=== PATIENT | male | born 1955 | race Caucasian/White ===

== ENCOUNTER 2019-06-14 08:48 | Emergency (ER) | payer MEDICARE ==
--- NOTE | 2019-06-14 09:05 | ED ---
HPI Chest Pain - HPI Summary HPI Summary: Patient is a 63 y/o M who presents to the ED for evaluation for what he describes as concern for a heart attack. Patient notes his symptoms initially began approximately one week ago when he had an episode of turning pale, associated with left-sided numbness of his arm and leg, as well as shortness of breath with exertion. He denies fever, cough, focal weakness, headache, visual changes, chest pain/pressure, vomiting, abdominal pain, diarrhea, dysuria, or lower extremity pain/swelling. [place] and has not been around any sick contacts. PMHx of history of CAD, CHF, VTE, asthma, or COPD is denied. He reports a remote history of low back injury/sciatica. He is a former smoker. He smokes marijuana on occasion. He drinks several beers daily. No history of alcohol withdrawal. - History of Current Complaint Chief Complaint: EDChestPainROMI Hx Obtained From: Patient Onset/Duration: Started Days Ago, Atraumatic, Still Present Timing: Intermittent Initial Severity: Moderate Current Severity: Moderate Pain Scale Used: 0-10 Numeric Chest Pain Radiates: No Aggravating Factor(s): Nothing Alleviating Factor(s): Nothing Associated Signs and Symptoms: Positive: Numbness - Left arm and left leg, Shortness of Breath. Negative: Chest Pain, Headaches, Weakness, Fever, Cough, Abdominal Pain, Vomiting, Edema - Lower extremities - Allergy/Home Medications Allergies/Adverse Reactions: Allergies Allergy/AdvReac Type Severity Reaction Status Date / Time No Known Allergies Allergy Verified 06/14/19 09:09 Home Medications: Home Medications Aspirin EC TAB* [Ecotrin EC TAB*] 325 mg PO DAILY PRN 06/14/19 [History Confirmed 06/14/19] PMH/Surg Hx/FS Hx/Imm Hx Previously Healthy: Yes Cardiovascular History: Denies: Hx Congestive Heart Failure, Hx Coronary Artery Disease Respiratory History: Denies: Hx Asthma, Hx Chronic Obstructive Pulmonary Disease (COPD) Neurological History: Reports: Other Neuro Impairments/Disorders - Sciatica/ lower back injury - Surgical History Surgical History: None Surgery Procedure, Year, and Place: None Infectious Disease History: No Infectious Disease History: Denies: Traveled Outside the [place] in Last 30 Days - Family History Known Family History: Negative: Cardiac Disease, Hypertension, Diabetes - Social History Occupation: Retired Alcohol Use: Daily Alcohol Amount: Several beers daily Hx Substance Use: Yes Substance Use Type: Reports: Marijuana Hx Tobacco Use: Yes Smoking Status (MU): Former Smoker Review of Systems Positive: Other - Positive pallor. Negative: Fever Negative: Other - Negative visual changes Negative: Chest Pain Positive: Shortness Of Breath. Negative: Cough Negative: Abdominal Pain, Vomiting, Diarrhea Negative: dysuria Negative: Myalgia - Lower extremities, Edema - Lower extremities Positive: Numbness - Left arm and left leg. Negative: Headache, Weakness All Other Systems Reviewed And Are Negative: Yes Physical Exam - Summary Physical Exam Summary: Constitutional: Well-developed, Well-nourished, Alert. (-) Distressed Skin: Warm, Dry HENT: Normocephalic; Atraumatic Eyes: Conjunctiva normal Neck: Musculoskeletal ROM normal neck. (-) JVD, (-) Stridor, (-) Tracheal deviation Cardio: Rhythm regular, rate normal, Heart sounds normal; Intact distal pulses; The pedal pulses are 2+ and symmetric. Radial pulses are 2+ and symmetric. (-) Murmur Pulmonary/Chest wall: Effort normal. (-) Respiratory distress, (-) Wheezes, (-) Rales Abd: Soft, (-) tenderness, (-) Distension, (-) Guarding, (-) Rebound Musculoskeletal: (-) Edema. Slight bilateral UE tremor. Lymph: (-) Cervical adenopathy Neuro: Alert, Oriented x3 Psych: Mood and affect Normal Triage Information Reviewed: Yes Vital Signs Reviewed: Yes Procedures - Sedation Patient Received Moderate/Deep Sedation with Procedure: No Diagnostics - Laboratory Result Diagrams: 06/14/19 09:52 06/14/19 09:52 Lab Statement: Any lab studies that have been ordered have been reviewed, and results considered in the medical decision making process. - Radiology Chest X-ray Radiology Interpretation Completed By: Radiologist Summary of Radiographic Findings: Chest X-ray IMPRESSION: HYPERINFLATION, CONSISTENT WITH COPD. NO ACTIVE CARDIOPULMONARY DISEASE. Reviewed by Dr. Mcginnis. - EKG 09:07 Cardiac Rate: NL - 82 BPM EKG Rhythm: Sinus Rhythm ST Segment: Normal Ectopy: None Summary of EKG Findings: EKG at 09:07 shows normal sinus rhythm with 82 BPM, no ischemic changes. Dr. Mcginnis has reviewed and interpreted this EKG. Chest Pain Course/Dx - Course Course Of Treatment: Patient is a 63 y/o M who presents to the ED for evaluation for what he describes as concern for a heart attack. Patient notes his symptoms initially began approximately one week ago when he had an episode of turning pale, associated with left-sided numbness of his arm and leg, as well as shortness of breath with exertion. He denies fever, cough, focal weakness, headache, visual changes, chest pain/pressure, vomiting, abdominal pain, diarrhea, dysuria, or lower extremity pain/swelling. He notes [place] [address] [place] and has not been around any sick contacts. PMHx of history of CAD, CHF , VTE, asthma, or COPD is denied. He reports a remote history of low back injury /sciatica. He is a former smoker. He smokes marijuana on occasion. He drinks several beers daily. No history of alcohol withdrawal. On exam, slight bilateral UE tremor. EKG at 09:07 shows normal sinus rhythm with 82 BPM, no ischemic changes. Chest X-ray IMPRESSION: HYPERINFLATION, CONSISTENT WITH COPD. NO ACTIVE CARDIOPULMONARY DISEASE. All other abnormal lab results are not pertinent to current cc. Patient will be discharged with a diagnosis of atypical chest pain and weakness. Follow up with PCP in 2-3 days. - Diagnoses Provider Diagnoses: Atypical chest pain, Weakness Discharge ED - Sign-Out/Discharge Documenting (check all that apply): Patient Departure - Discharge - Discharge Plan Condition: Stable Disposition: HOME Patient Education Materials: Chest Pain (ED) Referrals: [facility] [Outside] Additional Instructions: RETURN TO THE EMERGENCY DEPARTMENT FOR CHANGING OR WORSENING SYMPTOMS. Follow up with your primary care physician in 2-3 days. - Billing Disposition and Condition Condition: STABLE Disposition: Home - Attestation Statements Document Initiated by Shadia: Yes Documenting Scribe: Rossy Hayes Provider For Whom Shadia is Documenting (Include Credential): Donald Mcginnis DO Scribe Attestation: Rossy Vyas scribed for Donald Mcginnis DO on 06/14/19 at 1555. Scribe Documentation Reviewed: Yes Provider Attestation: The documentation as recorded by the Rossy jeong accurately reflects the service I personally performed and the decisions made by , Donald Mcginnis DO Status of Scribe Document: Viewed
[2019-06-14 09:59] LABS: ABS Eosinophils 0.1 10^3/ul (0-0.6); ABS Lymphocytes 1.1 10^3/ul (1.0-4.8); ABS Monocytes 0.5 10^3/ul (0-0.8); Eosinophil % 1.1 %; Hematocrit 44 % (42-52); Hemoglobin 15.4 g/dL (14.0-18.0); Lymphocyte % 20.3 %; Mean Corpuscular HGB Conc 35 g/dL (31-36); Mean Corpuscular Hemoglobin 33 pg (27-31); Mean Corpuscular Volume 93 fL (80-94); Nucleated Red Blood Cells % 0.1; Platelet Count 143 10^3/uL (150-450); Red Blood Count 4.73 10^6 /uL (4.18-5.48); Red Cell Distribution Width 13 % (10-15); White Blood Count 5.6 10^3/uL (3.5-10.8)
[2019-06-14 10:11] LABS: INR 1.16 (0.82-1.09)
[2019-06-14 10:25] LABS: ALT 40 U/L (7-52); AST 32 U/L (13-39); Albumin 3.7 g/dL (3.2-5.2); Albumin/Globulin Ratio 1.4 (1-3); Alkaline Phosphatase 42 U/L (34-104); Anion Gap 5 mmol/L (2-11); BUN/Creatinine Ratio 12.5 (8-20); Blood Urea Nitrogen 12 mg/dL (6-24); CO2 Carbon Dioxide 26 mmol/L (22-32); Calcium 9.2 mg/dL (8.6-10.3); Chloride 105 mmol/L (101-111); EGFR African American 95.1 (>60); EGFR Non-African American 78.6 (>60); Globulin 2.6 g/dL (2-4); Glucose 107 mg/dL (70-100); Magnesium 1.9 mg/dL (1.9-2.7); Potassium 4.6 mmol/L (3.5-5.0); Sodium 136 mmol/L (135-145); Total Protein 6.3 g/dL (6.4-8.9)
[2019-06-14 10:41] LABS: Alcohol < 10 mg/dL (<10)
[2019-06-14 10:55] LABS: TSH (Thyroid Stimulating Horm) 1.27 mcIU/mL (0.34-5.60)
[2019-06-14 12:39] VITALS: BP 124/86
== END 2019-06-14 12:39 | disposition home or self-care (01) ==
LOC: ED 08:48
DX: R53.1 Weakness (principal); R07.89 Other chest pain; I25.10 Atherosclerotic heart disease of native coronary artery without angina pectoris; I50.9 Heart failure, unspecified; J44.9 Chronic obstructive pulmonary disease, unspecified; Z79.82 Long term (current) use of aspirin; Z87.891 Personal history of nicotine dependence
CPT/HCPCS: 36415; 71046; 80053; 80320; 83735; 84443; 84484; 85025; 85379; 85610; 93005; 99283; G0480

== ENCOUNTER 2020-05-21 11:35 | Inpatient (IN) ==
[2020-05-21 13:01] LABS: ABS Eosinophils 0.1 10^3/ul (0-0.6); ABS Lymphocytes 1.6 10^3/ul (1.0-4.8); ABS Monocytes 0.6 10^3/ul (0-0.8); ABS Neutrophils 4.1 10^3/ul (1.5-7.7); Eosinophil % 1.2 %; Hematocrit 42 % (42-52); Hemoglobin 14.4 g/dL (14.0-18.0); Lymphocyte % 25.4 %; Mean Corpuscular HGB Conc 34 g/dL (31-36); Mean Corpuscular Hemoglobin 32 pg (27-31); Mean Corpuscular Volume 95 fL (80-94); Platelet Count 158 10^3/uL (150-450); Red Blood Count 4.48 10^6 /uL (4.18-5.48); Red Cell Distribution Width 13 % (10-15); White Blood Count 6.5 10^3/uL (3.5-10.8)
[2020-05-21 13:07] LABS: INR 1.14 (0.82-1.09)
[2020-05-21 13:18] LABS: ALT 256 U/L (7-52); AST 160 U/L (13-39); Albumin/Globulin Ratio 1.4 (1-3); Alkaline Phosphatase 61 U/L (34-104); Anion Gap 6 mmol/L (2-11); BUN/Creatinine Ratio 12.8 (8-20); Blood Urea Nitrogen 11 mg/dL (6-24); CO2 Carbon Dioxide 28 mmol/L (22-32); Calcium 9.2 mg/dL (8.6-10.3); Chloride 103 mmol/L (101-111); EGFR African American 107.7 (>60); Globulin 2.9 g/dL (2-4); Glucose 93 mg/dL (70-100); Potassium 4.1 mmol/L (3.5-5.0); Sodium 137 mmol/L (135-145); Total Protein 6.9 g/dL (6.4-8.9)
[2020-05-21 13:45] LABS: Alcohol, S < 10 mg/dL (<10); TSH Ultra Thyroid Stim Horm 0.92 mcIU/mL (0.34-5.60)
[2020-05-21] MEDS ORDERED: Dexamethasone IV 4 MG/ML VIAL 1 ml VIAL IM ONE (13:55)
[2020-05-21 14:33] LABS: Urine Appearance Clear; Urine Bilirubin Negative (Negative); Urine Blood Negative (Negative); Urine Color Yellow; Urine Glucose Negative (Negative); Urine Ketones Negative (Negative); Urine Nitrite Negative (Negative); Urine Protein Negative (Negative); Urine Specific Gravity 1.005 (1.010-1.030); Urine Urobilinogen Negative (Negative)
[2020-05-21] MEDS ORDERED: Gadoteridol (CONTRAST) 279.3 MG/ML 10 ML IV ONE (15:37)
[2020-05-21 15:59] LABS: % Iron Saturation 48 % (15-55); Cholesterol 149 mg/dL; HDL Cholesterol 49.8 mg/dL; Iron 141 ug/dL (50-212); LDL Cholesterol 85 mg/dL; Total Iron Binding Capacity 293 mcg/dL (250-450); Transferrin 209 mg/dL (203-362); Triglycerides 70 mg/dL; Unsaturated Iron Binding < 278 ug/dL
[2020-05-21 16:04] LABS: Ferritin 489.5 ng/mL (24-336)
[2020-05-21] MEDS ORDERED: Dexamethasone IV 4 MG/ML VIAL 1 ml VIAL IV SLOW PU SCH (18:00)
[2020-05-21] MEDS: Dexamethasone IV 4 MG/ML VIAL 1 ml VIAL IV SLOW PU SCH (18:07)
[2020-05-21 21:45] LABS: Hepatitis B Surface Antigen Nonreactive (Nonreactive)
[2020-05-21 21:50] LABS: Hepatitis A Ab IgM Negative (Negative)
[2020-05-21 21:51] LABS: Hepatitis B Core IgM Nonreactive (Nonreactive)
[2020-05-21] MEDS ORDERED: Heparin 5000 UNITS/ML 1 mL VIAL SUBCUT SCH (22:00)
[2020-05-21 22:20] LABS: Hepatitis C Antibody Reactive (Negative)
[2020-05-22] MEDS: Dexamethasone IV 4 MG/ML VIAL 1 ml VIAL IV SLOW PU SCH ×4 (00:04→17:44)
[2020-05-22 05:47] LABS: ABS Lymphocytes 1.1 10^3/ul (1.0-4.8); ABS Monocytes 0.4 10^3/ul (0-0.8); ABS Neutrophils 10.2 10^3/ul (1.5-7.7); Hematocrit 44 % (42-52); Hemoglobin 15.3 g/dL (14.0-18.0); Lymphocyte % 9.1 %; Mean Corpuscular HGB Conc 35 g/dL (31-36); Mean Corpuscular Hemoglobin 33 pg (27-31); Mean Corpuscular Volume 93 fL (80-94); Mean Platelet Volume 8.3 fL (7.4-10.4); Platelet Count 168 10^3/uL (150-450); Red Blood Count 4.66 10^6 /uL (4.18-5.48); Red Cell Distribution Width 13 % (10-15); White Blood Count 11.6 10^3/uL (3.5-10.8)
[2020-05-22 06:13] LABS: ALT 217 U/L (7-52); AST 108 U/L (13-39); Albumin 3.8 g/dL (3.2-5.2); Albumin/Globulin Ratio 1.3 (1-3); Alkaline Phosphatase 55 U/L (34-104); Anion Gap 7 mmol/L (2-11); BUN/Creatinine Ratio 19.8 (8-20); Blood Urea Nitrogen 16 mg/dL (6-24); CO2 Carbon Dioxide 25 mmol/L (22-32); Calcium 9.1 mg/dL (8.6-10.3); Chloride 104 mmol/L (101-111); EGFR African American 115.4 (>60); EGFR Non-African American 95.3 (>60); Globulin 2.9 g/dL (2-4); Glucose 142 mg/dL (70-100); Potassium 4.4 mmol/L (3.5-5.0); Sodium 136 mmol/L (135-145); Total Protein 6.7 g/dL (6.4-8.9)
[2020-05-22] MEDS ORDERED: Iohexol 300 (CONTRAST) 10 ML SDV IV ONE (09:58)
[2020-05-22 10:05] LABS: C Reactive Protein < 1.00 mg/L (<8.01)
[2020-05-22 11:24] LABS: HIV 4th Generation Nonreactive (Nonreactive)
[2020-05-22] MEDS ORDERED: Enoxaparin 40 MG/0.4 ML SYR SUBCUT SCH (18:00)
[2020-05-22 22:26] LABS: Hepatitis B Surface Antigen Nonreactive (Nonreactive)
[2020-05-22 22:44] LABS: Hepatitis B Surface Ab Not Immune (Immune)
[2020-05-22 22:53] LABS: Hepatitis C Antibody Reactive (Negative)
[2020-05-23] MEDS: Dexamethasone IV 4 MG/ML VIAL 1 ml VIAL IV SLOW PU SCH ×4 (00:51→12:47)
[2020-05-23 05:57] LABS: Albumin 3.5 g/dL (3.2-5.2); Albumin/Globulin Ratio 1.3 (1-3); BUN/Creatinine Ratio 20.8 (8-20); Calcium 8.9 mg/dL (8.6-10.3); EGFR African American 122.3 (>60); EGFR Non-African American 101.1 (>60); Globulin 2.8 g/dL (2-4); Potassium 4.7 mmol/L (3.5-5.0); Total Bilirubin 0.6 mg/dL (0.2-1.0); Total Protein 6.3 g/dL (6.4-8.9)
[2020-05-23] MEDS ORDERED: Gadoteridol (CONTRAST) 279.3 MG/ML 10 ML IV ONE (08:20)
[2020-05-23 10:49] VITALS: BP 123/70
== END 2020-05-23 14:50 | disposition home or self-care (01) | DRG 54 ==
LOC: ED 11:35 → SSU 15:34
PROVIDERS: ADMIT Internal Medicine; ATTEND Internal Medicine

== ENCOUNTER 2020-09-01 22:51 | Observation (INO) ==
[2020-09-01] MEDS ORDERED: NS 0.9% 1000 ml BAG 1,000 ML IV.FLUID IV ONE (23:44)
[2020-09-01 23:58] LABS: INR 1.36 (0.82-1.09)
[2020-09-02 00:01] LABS: ABS Basophils 0.1 10^3/ul (0-0.2); ABS Lymphocytes 1.1 10^3/ul (1.0-4.8); ABS Neutrophils 6.5 10^3/ul (1.5-7.7); Hematocrit 46 % (42-52); Mean Corpuscular HGB Conc 35 g/dL (31-36); Mean Corpuscular Hemoglobin 35 pg (27-31); Mean Corpuscular Volume 100 fL (80-94); Mean Platelet Volume 8.1 fL (7.4-10.4); Nucleated Red Blood Cells % 0.2; Platelet Count 108 10^3/uL (150-450); Red Blood Count 4.56 10^6 /uL (4.18-5.48); Red Cell Distribution Width 15 % (10-15); White Blood Count 8.7 10^3/uL (3.5-10.8)
[2020-09-02] MEDS ORDERED: Diltiazem IV push/loading dose 5 MG/ML 5 ML vial (25 mg) IV SLOW PU ONE (00:06)
[2020-09-02 00:13] LABS: ALT 141 U/L (7-52); AST 85 U/L (13-39); Albumin 3.6 g/dL (3.2-5.2); Albumin/Globulin Ratio 1.3 (1-3); Alkaline Phosphatase 40 U/L (35-149); Anion Gap 8 mmol/L (2-11); Blood Urea Nitrogen 19 mg/dL (6-24); C Reactive Protein < 1.00 mg/L (<8.01); CO2 Carbon Dioxide 25 mmol/L (22-32); Calcium 8.4 mg/dL (8.6-10.3); Chloride 101 mmol/L (101-111); Creatine Kinase 351 U/L (10-223); EGFR African American 64.9 (>60); EGFR Non-African American 53.6 (>60); Globulin 2.7 g/dL (2-4); Glucose 121 mg/dL (70-100); Magnesium 2.4 mg/dL (1.9-2.7); Potassium 3.6 mmol/L (3.5-5.0); Sodium 134 mmol/L (135-145); Total Protein 6.3 g/dL (6.4-8.9)
[2020-09-02 00:17] LABS: Troponin I 0.07 ng/mL (<0.03)
[2020-09-02 00:49] LABS: TSH Ultra Thyroid Stim Horm 0.96 mcIU/mL (0.34-5.60)
[2020-09-02 02:09] LABS: Alcohol, S < 10 mg/dL (<10)
[2020-09-02] MEDS ORDERED: Naloxone 0.4 mg VIAL 0.4 mg/ml 1 ml VIAL IV PUSH ONE (02:54)
[2020-09-02] MEDS ORDERED: Ondansetron 4 mg VIAL 2 MG/ML 2 ml VIAL IV PRN (02:55)
[2020-09-02] MEDS ORDERED: Iodixanol (CONTRAST) 320 MG/ML 100 ML SDV IV ONE (03:06)
[2020-09-02 03:30] LABS: Amylase 267 U/L (29-103); Lipase 59 U/L (11.0-82.0)
[2020-09-02 03:30] LABS: Troponin I 0.07 ng/mL (<0.03)
[2020-09-02] MEDS ORDERED: Lactated Ringers 1000 ml BAG 1,000 ML IV SCH (04:00)
[2020-09-02 04:02] LABS: Urine Appearance Cloudy; Urine Bilirubin Negative (Negative); Urine Blood 1+ (Negative); Urine Color Amber; Urine Glucose Negative (Negative); Urine Ketones Negative (Negative); Urine Nitrite Negative (Negative); Urine Protein 1+(30 mg/dL) (Negative); Urine Specific Gravity 1.032 (1.002-1.030); Urine Urobilinogen Negative (Negative)
[2020-09-02] MEDS: KCL 20 MEQ/100 ML IVPREMIX 20 MEQ/100 ML BAG IV SCH ×2 (04:05→06:31)
[2020-09-02 04:07] LABS: Urine Bacteria Absent (Absent); Urine Red Blood Cell 1+(3-5/hpf) (Absent); Urine Squamous Epithelial Cell Present (Absent); Urine White Blood Cell Trace(0-5/hpf) (Absent)
[2020-09-02 04:22] LABS: Urine Benzodiazepine Screen None Detected (None Detect); Urine Cannabinoids Screen Presumptive Positive (None Detect); Urine Opiates Screen None Detected (None Detect)
[2020-09-02] MEDS ORDERED: Piperacillin/Tazobac ADVAN 3.375 GM in NS 0.9% 100 ml BAG 100 ML IV ONE (04:32)
[2020-09-02] MEDS ORDERED: Zosyn per Pharmacy NOTE FOLLOW UP SCH (05:00)
[2020-09-02] MEDS ORDERED: Metoprolol Tartrate 5 mg VIAL 5 ml VIAL (1 mg/ml) IV ONE (05:29)
[2020-09-02] MEDS ORDERED: levETIRAcetam IV 750 MG in NS 0.9% 100 ml BAG 100 ML IVPB SCH (06:00)
[2020-09-02 07:05] LABS: Albumin 2.9 g/dL (3.2-5.2); Albumin/Globulin Ratio 1.4 (1-3); Calcium 7.5 mg/dL (8.6-10.3); EGFR African American 108.8 (>60); EGFR Non-African American 89.9 (>60); Globulin 2.1 g/dL (2-4); Indirect Bilirubin 1.2 mg/dL (0.3-1.0); Potassium 3.7 mmol/L (3.5-5.0); Total Bilirubin 1.6 mg/dL (0.2-1.0)
[2020-09-02 07:32] LABS: Hematocrit 39 % (42-52); Hemoglobin 14.1 g/dL (14.0-18.0); Mean Corpuscular HGB Conc 36 g/dL (31-36); Mean Corpuscular Hemoglobin 35 pg (27-31); Mean Corpuscular Volume 99 fL (80-94); Red Blood Count 3.98 10^6 /uL (4.18-5.48); Red Cell Distribution Width 15 % (10-15); White Blood Count 8.9 10^3/uL (3.5-10.8)
[2020-09-02 07:40] LABS: ABS Lymphocytes 0.9 10^3/ul (1.0-4.8); ABS Monocytes 0.7 10^3/ul (0-0.8); ABS Neutrophils 7.3 10^3/ul (1.5-7.7); Lymphocyte % 9.7 %; Mean Platelet Volume 7.6 fL (7.4-10.4); Platelet Count 89 10^3/uL (150-450)
[2020-09-02] MEDS ORDERED: ZOSYN 3.375 GM Q8H per EXTENDED INFUSION IV SCH (09:00)
[2020-09-02] MEDS ORDERED: Metoprolol Tartrate 5 mg VIAL 5 ml VIAL (1 mg/ml) IV PRN (09:48)
[2020-09-02] MEDS ORDERED: Vancomycin per Pharmacy 1 EA NOTE FOLLOW UP SCH (10:00)
[2020-09-02] MEDS ORDERED: Acyclovir IV 500 MG/10 ML 100 ML VIAL (500 MG) IVPB SCH (10:00)
[2020-09-02] MEDS: NS 0.9% 1000 ml BAG 1,000 ML IV SCH (10:25)
[2020-09-02] MEDS ORDERED: AMPICILLIN ADVAN IVPB SCH (10:30)
[2020-09-02] MEDS ORDERED: NS 0.9% IVPB SCH (10:30)
[2020-09-02] MEDS: NS 0.9% IVPB SCH ×4 (10:48→23:16)
[2020-09-02] MEDS: ACYCLOVIR IVPB SCH ×2 (10:48→18:29)
[2020-09-02] MEDS: cefTRIAXone 2 GM ADDV.VIAL 2 GM in NS 0.9% 100 ml BAG 100 ML IV SCH ×2 (11:53→21:50)
[2020-09-02] MEDS ORDERED: levETIRAcetam 1000MG IVPREMIX 1,000 MG/100 ML BAG IVPB ONE (12:36)
[2020-09-02] MEDS ORDERED: Metoprolol Tartrate 5 mg VIAL 5 ml VIAL (1 mg/ml) IV SCH ×3 (13:00→17:00)
[2020-09-02] MEDS ORDERED: Vancomycin 1,500 MG in NS 0.9% 250 ml 250 ML IVPB ONE (13:00)
[2020-09-02 13:24] LABS: Body Fluid Source Cerebral Spinal
[2020-09-02] MEDS: Lactulose 30 ml UDC PO SCH ×2 (13:37→20:16)
[2020-09-02 13:40] LABS: CSF Glucose 62 mg/dL (40-70)
[2020-09-02 14:49] LABS: Body Fluid Mono 54 %
[2020-09-02] MEDS ORDERED: Metoprolol Tartrate 5 mg VIAL 5 ml VIAL (1 mg/ml) ONE (16:11)
[2020-09-02] MEDS: Enoxaparin 40 MG/0.4 ML SYR SUBCUT SCH (16:14)
[2020-09-02] MEDS: AMPICILLIN ADVAN IVPB SCH ×2 (17:27→23:16)
[2020-09-02] MEDS: levETIRAcetam 1000MG IVPREMIX 1,000 MG/100 ML BAG IV SCH (17:55)
[2020-09-02] MEDS ORDERED: NS 0.9% 1000 ml BAG 1,000 ML IV ONE (20:42)
[2020-09-03] MEDS ORDERED: Vancomycin 1000 MG in NS 0.9% 250 ML IVPB SCH (02:00)
[2020-09-03] MEDS: NS 0.9% 1000 ml BAG 1,000 ML IV SCH (02:06)
[2020-09-03] MEDS: ACYCLOVIR IVPB SCH ×2 (04:00→13:49)
[2020-09-03] MEDS: NS 0.9% IVPB SCH ×3 (04:00→13:49)
[2020-09-03] MEDS: AMPICILLIN ADVAN IVPB SCH (05:09)
[2020-09-03] MEDS: levETIRAcetam 1000MG IVPREMIX 1,000 MG/100 ML BAG IV SCH ×2 (06:04→17:20)
[2020-09-03 09:12] LABS: Albumin 2.8 g/dL (3.2-5.2); CO2 Carbon Dioxide 20 mmol/L (22-32); Calcium 7.7 mg/dL (8.6-10.3); Chloride 106 mmol/L (101-111); Sodium 135 mmol/L (135-145)
[2020-09-03 09:18] LABS: ALT 96 U/L (7-52); Albumin/Globulin Ratio 1.4 (1-3); Alkaline Phosphatase 27 U/L (35-149); Blood Urea Nitrogen 14 mg/dL (6-24); C Reactive Protein 1.09 mg/L (<8.01); EGFR African American 116.7 (>60); EGFR Non-African American 96.4 (>60); Glucose 87 mg/dL (70-100); Total Protein 4.8 g/dL (6.4-8.9)
[2020-09-03 09:20] LABS: Anion Gap 9 mmol/L (2-11)
[2020-09-03] MEDS: Lactulose 30 ml UDC PO SCH ×2 (10:47→14:39)
[2020-09-03] MEDS: cefTRIAXone 2 GM ADDV.VIAL 2 GM in NS 0.9% 100 ml BAG 100 ML IV SCH (10:51)
[2020-09-03 10:52] LABS: ABS Lymphocytes 1.1 10^3/ul (1.0-4.8); ABS Monocytes 0.6 10^3/ul (0-0.8); ABS Neutrophils 5.8 10^3/ul (1.5-7.7); Eosinophil % 0.1 %; Hematocrit 41 % (42-52); Hemoglobin 14.3 g/dL (14.0-18.0); Mean Corpuscular HGB Conc 35 g/dL (31-36); Mean Corpuscular Hemoglobin 35 pg (27-31); Mean Corpuscular Volume 102 fL (80-94); Mean Platelet Volume 8.2 fL (7.4-10.4); Platelet Count 74 10^3/uL (150-450); Red Blood Count 4.04 10^6 /uL (4.18-5.48); Red Cell Distribution Width 15 % (10-15); White Blood Count 7.6 10^3/uL (3.5-10.8)
[2020-09-03 11:29] LABS: Magnesium 1.9 mg/dL (1.9-2.7); Potassium Redraw 3.2 mmol/L (3.5-5.0)
[2020-09-03] MEDS ORDERED: Ampicillin ADVAN 2 GM in NS 0.9% 100 ml BAG 100 ML IVPB SCH (12:00)
[2020-09-03] MEDS ORDERED: Gadoteridol (CONTRAST) 279.3 MG/ML 10 ML IV ONE (12:35)
[2020-09-03] MEDS ORDERED: ACYCLOVIR IVPB SCH (14:00)
[2020-09-03] MEDS ORDERED: NS 0.9% IVPB SCH (14:00)
[2020-09-03] MEDS: Metoprolol Tartrate 5 mg VIAL 5 ml VIAL (1 mg/ml) IV PRN ×2 (14:59→19:06)
[2020-09-03] MEDS ORDERED: Valproic Acid IV 1,000 MG in NS 0.9% 100 ml BAG 100 ML IVPB ONE (15:00)
[2020-09-03] MEDS ORDERED: Dexamethasone IV 10 MG in NS 0.9% 50 ML 50 ML IVPB ONE (15:47)
[2020-09-03] MEDS ORDERED: Dexamethasone IV 4 MG/ML 5 ML VIAL (20 MG) IVPB ONE (16:00)
[2020-09-03] MEDS ORDERED: DOXYcycline 100 MG in NS 0.9% 250 ml 250 ML IVPB SCH (16:00)
[2020-09-03] MEDS: Enoxaparin 40 MG/0.4 ML SYR SUBCUT SCH (17:19)
[2020-09-03 20:21] VITALS: BP 124/82
[2020-09-03] MEDS ORDERED: Dexamethasone IV 4 MG/ML 5 ML VIAL (20 MG) IVPB SCH (22:00)
[2020-09-04] MEDS ORDERED: Vancomycin Trough Check NOTE FOLLOW UP ONE (13:30)
[2020-09-04 22:44] LABS: Anaplasma phagocytophilum Negative (Negative); B. miyamotoi PCR, B Negative (Negative); Babesia divergens/MO-1 Negative (Negative); Babesia ducani Negative (Negative); Ehrlichia chaffeensis Negative (Negative); Ehrlichia ewingii/canis Negative (Negative); Ehrlichia muris eauclairensis Negative (Negative)
== END 2020-09-03 20:00 | disposition short-term general hospital (02) ==
LOC: ED 22:51 → MED 22:51 → MEDTELE 09-03 01:09 → ICU 09-03 14:45
PROVIDERS: ADMIT Student in an Organized Health Care Education/Training Program; ATTEND Pediatrics

== ENCOUNTER 2020-10-26 10:49 | Inpatient (IN) ==
[2020-10-26] MEDS ORDERED: Cefepime 2 GM in NS 0.9% 50 ML 50 ML IVPB ONE (11:04)
[2020-10-26 11:11] LABS: Hematocrit 42 % (42-52); Hemoglobin 14.2 g/dL (14.0-18.0); Mean Corpuscular HGB Conc 34 g/dL (31-36); Mean Corpuscular Hemoglobin 37 pg (27-31); Mean Corpuscular Volume 107 fL (80-94); Platelet Count 387 10^3/uL (150-450); Red Blood Count 3.89 10^6 /uL (4.18-5.48); Red Cell Distribution Width 17 % (10-15); White Blood Count 30.8 10^3/uL (3.5-10.8)
[2020-10-26 11:31] LABS: Troponin I 0.07 ng/mL (<0.03)
[2020-10-26 11:55] LABS: ALT 80 U/L (7-52); AST 60 U/L (13-39); Albumin 3.7 g/dL (3.2-5.2); Albumin/Globulin Ratio 1.3 (1-3); Alkaline Phosphatase 80 U/L (35-149); Anion Gap 17 mmol/L (2-11); Blood Urea Nitrogen 22 mg/dL (6-24); CO2 Carbon Dioxide 20 mmol/L (22-32); Calcium 9.5 mg/dL (8.6-10.3); Chloride 102 mmol/L (101-111); EGFR African American 138.4 (>60); EGFR Non-African American 114.4 (>60); Globulin 2.8 g/dL (2-4); Glucose 173 mg/dL (70-100); Potassium 3.8 mmol/L (3.5-5.0); Sodium 139 mmol/L (135-145); Total Protein 6.5 g/dL (6.4-8.9)
[2020-10-26] MEDS ORDERED: Enoxaparin 30 MG/0.3 ML SYR SUBCUT SCH (12:00)
[2020-10-26] MEDS ORDERED: NS 0.9% 50 ML 50 ML ONE (12:04)
[2020-10-26 12:32] LABS: PCO2 Arterial 31 mmHg (35-45); PO2 Arterial 68 mmHg (80-100)
[2020-10-26] MEDS ORDERED: Lorazepam PYXIS KEY PRN (12:34)
[2020-10-26] MEDS ORDERED: LORazepam 2 mg VIAL 1 ml IV PUSH ONE (12:34)
[2020-10-26] MEDS ORDERED: Vancomycin per Pharmacy 1 EA NOTE FOLLOW UP PRN ×2 (12:39→12:40)
[2020-10-26 12:49] LABS: ABS Basophils 0.2 10^3/ul (0-0.2); ABS Lymphocytes 1.4 10^3/ul (1.0-4.8); ABS Neutrophils 27.2 10^3/ul (1.5-7.7); Lymphocyte % 4.6 %
[2020-10-26] MEDS ORDERED: Cefepime 2 GM IV - ED ONCE IV ONE (13:00)
[2020-10-26] MEDS ORDERED: Vancomycin 1,000 MG in NS 0.9% 250 ml 250 ML IVPB ONE (13:00)
[2020-10-26] MEDS ORDERED: NORMOSOL-R pH 7.4 1000 mL BAG 1,000 ML IV SCH (13:00)
[2020-10-26] MEDS ORDERED: NS 0.9% 250 ml 250 ML ONE (14:00)
[2020-10-26] MEDS: Morphine 2 MG/ML SYRINGE IV PRN ×2 (14:03→18:24)
[2020-10-26 15:16] LABS: C Reactive Protein 1.01 mg/L (<8.01)
[2020-10-26] MEDS ORDERED: Dexamethasone IV 4 MG/ML VIAL 1 ml VIAL SCH (16:00)
[2020-10-26] MEDS ORDERED: NS 0.9% IVPB ONE (16:00)
[2020-10-26] MEDS ORDERED: DEXAMETHASONE IVPB ONE (16:00)
[2020-10-26] MEDS ORDERED: Dexamethasone IV 4 MG/ML VIAL 1 ml VIAL IV SLOW PU ONE (16:15)
[2020-10-26 16:25] LABS: Erythrocyte Sed Rate 16 mm/Hr (0-19)
[2020-10-26] MEDS: levETIRAcetam LIQ 500 MG/5 ML UDC G TUBE SCH (21:13)
[2020-10-26] MEDS: Cefepime 2 GM in Dextrose 2 GM/50 ML BAG IV SCH (21:13)
[2020-10-26] MEDS: Vancomycin 1000 MG in NS 0.9% 250 ML IVPB SCH (21:13)
[2020-10-26] MEDS: Lactulose 30 ml UDC PEG TUBE SCH (21:14)
[2020-10-27] MEDS ORDERED: NS 0.9% 250 ml 250 ML ONE (05:22)
[2020-10-27] MEDS: Vancomycin 1000 MG in NS 0.9% 250 ML IVPB SCH ×3 (06:08→23:01)
[2020-10-27 06:33] LABS: ABS Lymphocytes 0.9 10^3/ul (1.0-4.8); ABS Monocytes 1.3 10^3/ul (0-0.8); ABS Neutrophils 14.6 10^3/ul (1.5-7.7); Hematocrit 32 % (42-52); Hemoglobin 11.4 g/dL (14.0-18.0); Lymphocyte % 5.4 %; Mean Corpuscular HGB Conc 36 g/dL (31-36); Mean Corpuscular Hemoglobin 37 pg (27-31); Mean Corpuscular Volume 105 fL (80-94); Mean Platelet Volume 8.4 fL (7.4-10.4); Platelet Count 192 10^3/uL (150-450); Red Blood Count 3.04 10^6 /uL (4.18-5.48); Red Cell Distribution Width 17 % (10-15); White Blood Count 16.9 10^3/uL (3.5-10.8)
[2020-10-27 06:44] LABS: Calcium 8.7 mg/dL (8.6-10.3); EGFR African American 165.8 (>60); Phosphorus 3.6 mg/dL (2.5-5.0)
[2020-10-27] MEDS: Lactulose 30 ml UDC PEG TUBE SCH ×3 (08:04→21:44)
[2020-10-27] MEDS: levETIRAcetam LIQ 500 MG/5 ML UDC G TUBE SCH ×2 (08:04→21:44)
[2020-10-27] MEDS: Cefepime 2 GM in Dextrose 2 GM/50 ML BAG IV SCH ×2 (08:09→21:45)
[2020-10-27] MEDS: Lansoprazole SUSP ORALSYR 3 MG/ML PEG TUBE SCH (09:26)
[2020-10-27] MEDS ORDERED: Vancomycin Trough Check NOTE FOLLOW UP ONE (13:30)
[2020-10-28] MEDS: Vancomycin 1000 MG in NS 0.9% 250 ML IVPB SCH ×3 (06:00→22:38)
[2020-10-28 06:49] LABS: ABS Lymphocytes 0.7 10^3/ul (1.0-4.8); ABS Monocytes 1.1 10^3/ul (0-0.8); ABS Neutrophils 11.8 10^3/ul (1.5-7.7); Eosinophil % 0.1 %; Hematocrit 31 % (42-52); Hemoglobin 10.5 g/dL (14.0-18.0); Lymphocyte % 5.4 %; Mean Corpuscular HGB Conc 34 g/dL (31-36); Mean Corpuscular Hemoglobin 36 pg (27-31); Mean Corpuscular Volume 108 fL (80-94); Mean Platelet Volume 8.2 fL (7.4-10.4); Platelet Count 157 10^3/uL (150-450); Red Blood Count 2.91 10^6 /uL (4.18-5.48); Red Cell Distribution Width 16 % (10-15); White Blood Count 13.6 10^3/uL (3.5-10.8)
[2020-10-28 07:10] LABS: Calcium 8.7 mg/dL (8.6-10.3); EGFR African American 183.6 (>60); EGFR Non-African American 151.8 (>60); Phosphorus 2.7 mg/dL (2.5-5.0); Potassium 3.9 mmol/L (3.5-5.0)
[2020-10-28] MEDS: Lactulose 30 ml UDC PEG TUBE SCH ×3 (09:43→21:04)
[2020-10-28] MEDS: Lansoprazole SUSP ORALSYR 3 MG/ML PEG TUBE SCH (09:43)
[2020-10-28] MEDS: Cefepime 2 GM in Dextrose 2 GM/50 ML BAG IV SCH ×2 (09:44→20:59)
[2020-10-28] MEDS: levETIRAcetam LIQ 500 MG/5 ML UDC G TUBE SCH ×2 (09:45→21:04)
[2020-10-28] MEDS: Digoxin LIQ ORALSYR 0.05 MG/ML 1 ML PEG TUBE SCH (11:14)
[2020-10-29] MEDS: Vancomycin 1000 MG in NS 0.9% 250 ML IVPB SCH ×3 (05:48→23:24)
[2020-10-29] MEDS: Cefepime 2 GM in Dextrose 2 GM/50 ML BAG IV SCH ×2 (11:05→22:47)
[2020-10-29] MEDS: Lactulose 30 ml UDC PEG TUBE SCH ×3 (11:07→22:50)
[2020-10-29] MEDS: levETIRAcetam LIQ 500 MG/5 ML UDC G TUBE SCH ×2 (11:07→22:50)
[2020-10-29] MEDS: Digoxin LIQ ORALSYR 0.05 MG/ML 1 ML PEG TUBE SCH (11:07)
[2020-10-29] MEDS: Lansoprazole SUSP ORALSYR 3 MG/ML PEG TUBE SCH (11:14)
[2020-10-30] MEDS ORDERED: Vancomycin Trough Check NOTE FOLLOW UP ONE (06:00)
[2020-10-30 06:21] LABS: Digoxin 1.3 ng/ml (0.8-2.0); Vancomycin Trough 28.9 mcg/mL
[2020-10-30] MEDS: Vancomycin 1000 MG in NS 0.9% 250 ML IVPB SCH (06:43)
[2020-10-30] MEDS: levETIRAcetam LIQ 500 MG/5 ML UDC G TUBE SCH ×2 (10:15→22:29)
[2020-10-30] MEDS: Digoxin LIQ ORALSYR 0.05 MG/ML 1 ML PEG TUBE SCH (10:15)
[2020-10-30] MEDS: Cefepime 2 GM in Dextrose 2 GM/50 ML BAG IV SCH ×2 (10:16→22:26)
[2020-10-30] MEDS: Lansoprazole SUSP ORALSYR 3 MG/ML PEG TUBE SCH (10:16)
[2020-10-30] MEDS: Lactulose 30 ml UDC PEG TUBE SCH (11:20)
[2020-10-31] MEDS ORDERED: Vancomycin Random Level NOTE FOLLOW UP ONE (06:00)
[2020-10-31] MEDS: levETIRAcetam LIQ 500 MG/5 ML UDC G TUBE SCH ×2 (10:05→21:53)
[2020-10-31] MEDS: Digoxin LIQ ORALSYR 0.05 MG/ML 1 ML PEG TUBE SCH (10:05)
[2020-10-31] MEDS: Cefepime 2 GM in Dextrose 2 GM/50 ML BAG IV SCH (10:05)
[2020-10-31] MEDS: Lansoprazole SUSP ORALSYR 3 MG/ML PEG TUBE SCH (10:05)
[2020-11-01 07:48] VITALS: BP 133/88
[2020-11-01] MEDS ORDERED: Atropine 1% (ORAL/SL) 15 ML BTL SL PRN (08:14)
[2020-11-01] MEDS: levETIRAcetam LIQ 500 MG/5 ML UDC G TUBE SCH (10:11)
[2020-11-01] MEDS: Digoxin LIQ ORALSYR 0.05 MG/ML 1 ML PEG TUBE SCH (10:11)
[2020-11-01] MEDS: Lansoprazole SUSP ORALSYR 3 MG/ML PEG TUBE SCH (10:11)
== END 2020-11-01 12:10 | DRG 871 ==
LOC: ED 10:49 → SUATTDRO 13:14 → ICU 13:14 → SSU 10-28 18:41 → MED 10-30 20:33
PROVIDERS: ADMIT Internal Medicine; ATTEND Internal Medicine